=== PATIENT | male | born 1935 | race Caucasian/White ===

== ENCOUNTER 2021-07-09 10:42 | Inpatient (IN) | payer MEDICARE ==
[2021-07-09 11:08] LABS: #Basophils 0.1 10x3/uL (0.0-0.2); #Eosinphils 0.3 10x3/uL (0.0-0.5); #Monocytes 0.5 10x3/uL (0.0-1.1); #Neutrophils 4.1 10x3/uL (1.5-8.4); %Basophils 0.8 % (0.0-2.0); %Eosinophils 5.1 % (0.0-6.0); %Lymphocytes 23.2 % (18.0-47.0); %Monocytes 7.6 % (0.0-10.0); Hemoglobin 14.8 g/dL (13.5-17.5); Mean Corpuscular HGB CONC 33.2 g/dL (32.0-36.0); Mean Corpuscular Volume 96.3 fl (81.2-95.1); Mean Platelet Volume 10.5 fl (7.4-10.4); Platelet Count 199 10x3/uL (150-450); Red Blood Cell (RBC) Count 4.63 10x6/uL (4.32-5.72); White Blood Cell (WBC) Count 6.5 10x3/uL (3.5-10.5)
[2021-07-09 11:30] LABS: ALT (SGPT) 17 U/L (8-55); AST (SGOT) 22 U/L (5-34); Albumin 4.4 g/dL (3.4-4.8); Alkaline Phosphatase 72 U/L (40-110); Anion Gap 12 mmol/L (10-20); BUN (Urea Nitrogen) 15 mg/dL (8.4-25.7); Bilirubin, Total 0.8 mg/dL (0.2-1.2); Calc. Creatinine Clearance 0 mL/min (70-130); Calcium 9.3 mg/dL (7.8-10.44); Carbon Dioxide 28 mmol/L (23-31); Chloride 104 mmol/L (98-107); Glucose 202 mg/dL (83-110); Lipase 20 U/L (8-78); Potassium 4.1 mmol/L (3.5-5.1); Protein, Total 7.4 g/dL (5.8-8.1); Sodium 140 mmol/L (136-145)
[2021-07-09 11:32] LABS: Bilirubin Neg (Negative); Blood, Urine 10 (Negative); Clarity Clear (Clear); Glucose, Urine (Dipstick) >=1000 mg/dL (Negative); Ketone, Urine Negative (Negative); Leukocyte Negative (Negative); Nitrite Negative (Negative); Protein, Urine (Dipstick) 15 mg/dl (Neg-Trace); Specific Gravity, Urine 1.015 (1.002-1.036); Urobilinogen Normal mg/dL (Less than 2)
[2021-07-09 11:40] LABS: Bacteria/HPF Rare-Few HPF (None Seen); Mucous/LPF 1+ LPF (<2+); Squamous Epithelial 0-3 HPF (0-3); WBC/HPF 0-3 HPF (0-3)
[2021-07-09] MEDS ORDERED: Enoxaparin Sodium 80 MG/0.8 ML SYRINGE ONE (11:43)
[2021-07-09] MEDS ORDERED: Nitroglycerin 2% Ointment 1 INCH/1 GM Packet ONE (11:44)
[2021-07-09] MEDS ORDERED: Aspirin 325 MG TAB ONE (11:44)
[2021-07-09 11:56] LABS: CKMB 5.3 ng/mL (0-6.6)
[2021-07-09 12:01] LABS: SARS-CoV-2 NAA Rapid Test Not Detected (NotDetected)
[2021-07-09] MEDS ORDERED: Ondansetron ODT 4 MG TAB PO PRN (12:51)
[2021-07-09] MEDS ORDERED: Nitroglycerin 0.4 MG TAB (25 Tab Bottle) SL PRN (12:51)
[2021-07-09] MEDS ORDERED: HumaLOG 300 UNITS/3 ML VIAL SC PRN ×2 (12:51)
[2021-07-09] MEDS ORDERED: Ondansetron PF 4 MG/2 ML Vial IVP PRN (12:51)
[2021-07-09] MEDS ORDERED: Dextrose 5% in Water 1,000 ML IV PRN (12:51)
[2021-07-09] MEDS ORDERED: Dextrose 50% Abboject 50 ML SYRINGE SLOW IVP PRN (12:51)
[2021-07-09] MEDS ORDERED: Acetaminophen 325 MG TAB PO PRN (12:51)
[2021-07-09 13:41] LABS: Magnesium 2.1 mg/dL (1.6-2.6)
[2021-07-09 14:18] LABS: Troponin I 1.025 ng/mL (< 0.028)
[2021-07-09 15:23] VITALS: BMI 20.6
[2021-07-09 16:52] LABS: Hemoglobin A1c 6.4 % (4.0-6.0)
[2021-07-09 17:30] LABS: Troponin I 1.057 ng/mL (< 0.028)
[2021-07-09] MEDS ORDERED: Communication Order-Pharmacy FS SCH (17:30)
[2021-07-09] MEDS ORDERED: Enoxaparin Sodium 80 MG/0.8 ML SYRINGE SC SCH (20:00)
[2021-07-10 05:46] LABS: #Basophils 0.1 10x3/uL (0.0-0.2); #Eosinphils 0.3 10x3/uL (0.0-0.5); #Monocytes 0.7 10x3/uL (0.0-1.1); #Neutrophils 4.3 10x3/uL (1.5-8.4); %Basophils 0.7 % (0.0-2.0); %Eosinophils 4.7 % (0.0-6.0); %Monocytes 9.8 % (0.0-10.0); %Neutrophils 62.7 % (40.0-75.0); Hemoglobin 12.1 g/dL (13.5-17.5); Mean Corpuscular HGB CONC 33.5 g/dL (32.0-36.0); Mean Corpuscular Hemoglobin 31.8 pg (27.0-33.0); Mean Platelet Volume 10.2 fl (7.4-10.4); Platelet Count 167 10x3/uL (150-450); RBC Distribution Width 13.9 % (11.5-14.5); White Blood Cell (WBC) Count 6.8 10x3/uL (3.5-10.5)
[2021-07-10 05:56] LABS: Anion Gap 11 mmol/L (10-20); BUN (Urea Nitrogen) 13 mg/dL (8.4-25.7); Calc. Creatinine Clearance 43 mL/min (70-130); Calcium 8.5 mg/dL (7.8-10.44); Carbon Dioxide 24 mmol/L (23-31); Cardiac Risk 5.9 (Less than 4.5); Chloride 108 mmol/L (98-107); Cholesterol 223 mg/dl (< 200 Desired); Glucose 116 mg/dL (83-110); HDL Cholesterol 38 mg/dL (>60 Neg Risk); LDL Cholesterol, Calculated 159 mg/dL; Potassium 3.9 mmol/L (3.5-5.1); Sodium 139 mmol/L (136-145); Triglycerides 129 mg/dL (Less than 150)
[2021-07-10] MEDS: Sodium Chloride 0.9% 1,000 ML IV SCH ×2 (06:11→22:35)
[2021-07-10] MEDS ORDERED: Aspirin 81 mg Enteric Coated Tablet PO SCH ×2 (06:15→09:00)
[2021-07-10] MEDS ORDERED: Lidocaine 1% PF 5 ML VIAL ONE (14:14)
[2021-07-10] MEDS ORDERED: Nitroglycerin 50 MG/250 ML BOT 250 ML ONE (14:15)
[2021-07-10] MEDS ORDERED: Heparin 10,000 UNITS/ 10 ML VIAL ONE ×2 (14:15→15:09)
[2021-07-10] MEDS ORDERED: Adenosine 6 MG/2 ML VIAL ONE ×2 (14:16→15:25)
[2021-07-10] MEDS ORDERED: Midazolam HCl 2 mg/2 ml Vial ONE ×3 (14:29→15:33)
[2021-07-10] MEDS ORDERED: Fentanyl 100 MCG/2 ML VIAL ONE (14:29)
[2021-07-10] MEDS ORDERED: TICAGRELOR 90 MG TABLET ONE (14:50)
[2021-07-10] MEDS ORDERED: Ondansetron PF 4 MG/2 ML Vial ONE (15:07)
[2021-07-10] MEDS ORDERED: Atropine Sulfate 0.4 mg/1 ml Vial ONE (15:07)
[2021-07-10] MEDS ORDERED: Protamine Sulfate 250 MG/25 ML VIAL FS SCH (16:15)
[2021-07-10] MEDS ORDERED: FLU VACC QS2021-22(65YR UP)/PF 240 MCG/0.7 ML SYRINGE IM ONE (18:45)
[2021-07-10] MEDS: TICAGRELOR 90 MG TABLET PO SCH (19:55)
[2021-07-10] MEDS ORDERED: Enoxaparin Sodium 80 MG/0.8 ML SYRINGE SC SCH (21:00)
[2021-07-11] MEDS: Sodium Chloride 0.9% 1,000 ML IV SCH ×3 (01:15→01:16)
[2021-07-11 07:12] LABS: #Basophils 0.1 10x3/uL (0.0-0.2); #Eosinphils 0.2 10x3/uL (0.0-0.5); #Monocytes 0.7 10x3/uL (0.0-1.1); #Neutrophils 5.1 10x3/uL (1.5-8.4); %Basophils 0.7 % (0.0-2.0); %Eosinophils 3.3 % (0.0-6.0); %Monocytes 10.3 % (0.0-10.0); %Neutrophils 74.6 % (40.0-75.0); Hemoglobin 11.4 g/dL (13.5-17.5); Mean Corpuscular HGB CONC 34.8 g/dL (32.0-36.0); Mean Corpuscular Hemoglobin 32.9 pg (27.0-33.0); Mean Corpuscular Volume 94.5 fl (81.2-95.1); Mean Platelet Volume 10.6 fl (7.4-10.4); Platelet Count 155 10x3/uL (150-450); RBC Distribution Width 13.8 % (11.5-14.5); Red Blood Cell (RBC) Count 3.47 10x6/uL (4.32-5.72); White Blood Cell (WBC) Count 6.9 10x3/uL (3.5-10.5)
[2021-07-11 07:50] LABS: ALT (SGPT) 13 U/L (8-55); AST (SGOT) 21 U/L (5-34); Albumin 3.2 g/dL (3.4-4.8); Alkaline Phosphatase 46 U/L (40-110); Anion Gap 11 mmol/L (10-20); BUN (Urea Nitrogen) 12 mg/dL (8.4-25.7); Calc. Creatinine Clearance 50 mL/min (70-130); Calcium 8.2 mg/dL (7.8-10.44); Carbon Dioxide 23 mmol/L (23-31); Chloride 108 mmol/L (98-107); Globulin 2.3 g/dL (2.4-3.5); Glucose 96 mg/dL (83-110); Potassium 3.6 mmol/L (3.5-5.1); Protein, Total 5.5 g/dL (5.8-8.1); Sodium 138 mmol/L (136-145)
[2021-07-11] MEDS: TICAGRELOR 90 MG TABLET PO SCH (08:13)
[2021-07-11] MEDS ORDERED: Aspirin 81 mg Enteric Coated Tablet PO SCH (09:00)
[2021-07-11 12:37] VITALS: BP 106/56; TEMP 97.1
[2021-07-11] MEDS ORDERED: Rosuvastatin 20 MG TAB PO SCH (21:00)
== END 2021-07-11 17:50 | disposition home or self-care (01) | DRG 247 ==
LOC: CSHERS 10:42 → OBSVTOIN 14:55 → CSHTELE 14:55
PROVIDERS: ADMIT Family Medicine; ATTEND Family Medicine
PROC: 027136Z Dilation of Coronary Artery, Two Arteries with Three Drug-eluting Intraluminal Devices, Percutaneous Approach (ICD-10-PCS; principal; 2021-07-10)
PROC: 4A023N7 Measurement of Cardiac Sampling and Pressure, Left Heart, Percutaneous Approach (ICD-10-PCS; 2021-07-10)
PROC: B2111ZZ Fluoroscopy of Multiple Coronary Arteries using Low Osmolar Contrast (ICD-10-PCS; 2021-07-10)
PROC: B2151ZZ Fluoroscopy of Left Heart using Low Osmolar Contrast (ICD-10-PCS; 2021-07-10)
DX: I21.4 Non-ST elevation (NSTEMI) myocardial infarction (principal); Z20.822 Contact with and (suspected) exposure to COVID-19; E78.5 Hyperlipidemia, unspecified; R00.1 Bradycardia, unspecified; I44.0 Atrioventricular block, first degree; K21.9 Gastro-esophageal reflux disease without esophagitis; E11.65 Type 2 diabetes mellitus with hyperglycemia; E78.00 Pure hypercholesterolemia, unspecified; Z79.82 Long term (current) use of aspirin; Z79.899 Other long term (current) drug therapy
CPT/HCPCS: 0240U; 36415; 36416; 71045; 80048; 80053; 80061; 81003; 81015; 82553; 83036; 83690; 83735; 84443; 84484; 85025; 85347; 92928; 92978; 92979; 93005; 93010; 93306; 93458; 94760; 96372; 97139; 99152; 99153; C1753; C1760; C1776; C1874; C1887; C9600; J0153; J0461; J1644; J1650; J2250; J2405; J2720; J3010; J7050